=== PATIENT | female | born 1955 | race African-American/Black ===

== ENCOUNTER 2020-04-24 15:03 | Emergency (ER) | payer MEDICARE, MEDICAID ==
[~2020-04-24] VITALS: Ht 170.2 cm; Wt 91.0 kg
[2020-04-24] MEDS ORDERED: ACETAMINOPHEN 325MG TABLET PO STA (16:17)
[2020-04-24 17:19] VITALS: BP 129/78
== END 2020-04-24 17:20 | disposition home or self-care (01) ==
LOC: ER 15:03
DX: S63.616A Unspecified sprain of right little finger, initial encounter (principal); W18.39XA Other fall on same level, initial encounter; Y93.89 Activity, other specified; Y92.89 Other specified places as the place of occurrence of the external cause; Y99.8 Other external cause status
CPT/HCPCS: 73140; 99283

== ENCOUNTER 2023-06-30 07:23 | Emergency (ER) | payer OTHER, MEDICAID ==
[~2023-06-30] VITALS: Ht 167.6 cm; Wt 70.0 kg
[2023-06-30 07:34] VITALS: O2SAT 98
[2023-06-30] MEDS ORDERED: IBUP-2028 PO (08:53)
[2023-06-30] MEDS ORDERED: IBUPROFEN 400MG TABLET PO ONE (09:00)
[2023-06-30 09:39] VITALS: BP 128/91; PULSE 77; RESP 19; TEMP 97.7
== END 2023-06-30 09:41 | disposition home or self-care (01) ==
LOC: ER 07:23
DX: S92.252A Displaced fracture of navicular [scaphoid] of left foot, initial encounter for closed fracture (principal); J44.9 Chronic obstructive pulmonary disease, unspecified; I10 Essential (primary) hypertension; Z85.9 Personal history of malignant neoplasm, unspecified; W18.39XA Other fall on same level, initial encounter; Y93.89 Activity, other specified; Y92.89 Other specified places as the place of occurrence of the external cause; Y99.8 Other external cause status
CPT/HCPCS: 29125; 73110; 73130; 99284